=== PATIENT | female | born 1980 | race African-American/Black ===

== ENCOUNTER 2018-08-20 04:43 | Emergency (ER) | payer MEDICAID, OTHER ==
[~2018-08-20] VITALS: Ht 165.1 cm; Wt 126.5 kg
[2018-08-20 07:32] LABS: CHLORIDE 110 mEq/L (98-107)
[2018-08-20 07:34] LABS: BASOPHILS % 0.2 % (0.0-2.0); EOSINOPHILS % 0.7 % (0.0-5.0); HEMATOCRIT. 38.2 % (36.0-48.0); HEMOGLOBIN. 13.4 g/dL (12.0-16.0); LYMPHOCYTES % 38.1 % (20.0-50.0); MEAN CORPUSCULAR HEMOGLOBIN 27.7 pg (28.0-32.0); MEAN PLATELET VOLUME 6.9 fl (7.4-10.4); MONOCYTES % 6.4 % (2.0-8.0); NEUTROPHILS % 54.6 % (40.0-76.0); PLATELET 323 x1000/uL (130-400); RED BLOOD CELL COUNT 4.84 mill/uL (4.2-5.4)
[2018-08-20 07:45] LABS: HCG SCREEN NEGATIVE
[2018-08-20] MEDS ORDERED: ACETAMINOPHEN 325MG TABLET PO ONE (08:00)
[2018-08-20 08:16] VITALS: BP 125/89
== END 2018-08-20 08:21 | disposition home or self-care (01) ==
LOC: ER 04:43
DX: M79.673 Pain in unspecified foot (principal); E11.9 Type 2 diabetes mellitus without complications
CPT/HCPCS: 36415; 80048; 82962; 84703; 99283

== ENCOUNTER 2019-11-26 20:50 | Emergency (ER) | payer MEDICAID | END 2019-11-26 20:51 | disposition left against medical advice (07) | LOC: ER 20:50 | DX: R56.9 Unspecified convulsions (principal); Z53.21 Procedure and treatment not carried out due to patient leaving prior to being seen by health care provider ==